=== PATIENT | female | born 1995 | race African-American/Black ===

== ENCOUNTER 2018-01-15 05:07 | Inpatient (IN) | payer MEDICAID ==
[~2018-01-15] VITALS: Ht 162.6 cm; Wt 62.6 kg
[~2018-01-15 05:07] MED LIST: ASMANEX0.135 GM; IBUPROFEN600 MG PO; PERCOCET 5-3251 TAB PO
[2018-01-15 06:36] VITALS: BP 132/76; Ht 162.6 cm; Wt 62.6 kg
[2018-01-15 06:48] LABS: BASOPHILS 0.2 % (0-2); EOSINOPHILS 0.6 % (0-7); HEMATOCRIT 28.8 % (36.0-48.0); HEMOGLOBIN 8.8 g/dL (12-16); IMMATURE GRANULOCYTES 0.5 % (0-5); MCH 22.1 pg (26.0-34.0); MCHC 30.6 g/dL (31.0-37.0); MCV 72.2 fL (80.0-100.0); MEAN PLATELET VOLUME 8.9 fL (7.4-10.4); MONOCYTES 6.6 % (2-11); NEUTROPHILS 85.1 % (40-80); PLATELET COUNT 173 10x3/uL (130-400); RBC 3.99 10x6/uL (4.00-5.40); RDW 17.7 % (11.5-14.5); WBC 13.3 10x3/uL (4.8-10.8)
[2018-01-15 07:10] VITALS: BP 142/82
[2018-01-15 12:04] VITALS: BP 138/86
[2018-01-16 07:29] LABS: RAPID PLASMA REAGIN Non Reactive (Non Reactive)
== END 2018-01-15 18:14 | disposition home or self-care (01) | DRG 775 ==
LOC: D.LD 05:07
PROVIDERS: Obstetrics & Gynecology
PROC: 10E0XZZ Delivery of Products of Conception, External Approach (ICD-10-PCS; principal; 2018-01-15)
PROC: 0KQM0ZZ Repair Perineum Muscle, Open Approach (ICD-10-PCS; 2018-01-15)
DX: O42.92 Full-term premature rupture of membranes, unspecified as to length of time between rupture and onset of labor (principal); Z3A.39 39 weeks gestation of pregnancy; Z37.0 Single live birth; O70.1 Second degree perineal laceration during delivery

== ENCOUNTER 2020-12-14 04:59 | Day surgery (SDC) | payer MEDICAID ==
[2020-12-10 13:14] LABS: BASOPHILS 0.2 % (0-2); EOSINOPHILS 0.8 % (0-7); HEMATOCRIT 30.2 % (36.0-48.0); HEMOGLOBIN 10.3 g/dL (12-16); IMMATURE GRANULOCYTES 0.1 % (0-5); LYMPHOCYTE ABS# 1.35 10x3/uL (1.18-3.74); LYMPHOCYTES 14.8 % (15-50); MCH 26.1 pg (26.0-34.0); MCHC 34.1 g/dL (31.0-37.0); MCV 76.5 fL (80.0-100.0); MEAN PLATELET VOLUME 8.4 fL (7.4-10.4); MONOCYTES 4.9 % (2-11); NEUTROPHIL ABS# 7.21 10x3/uL (1.56-6.13); NEUTROPHILS 79.2 % (40-80); PLATELET COUNT 206 10x3/uL (130-400); RBC 3.95 10x6/uL (4.00-5.40); RDW 16.2 % (11.5-14.5); WBC 9.1 10x3/uL (4.8-10.8)
[~2020-12-14] VITALS: Ht 160 cm; Wt 52.2 kg
[2020-12-14 05:48] VITALS: BP 131/93; Ht 160 cm; Wt 52.2 kg
[2020-12-14 06:28] LABS: HCG URINE POSITIVE (NEGATIVE)
--- NOTE | 2020-12-14 09:34 | NUR ---
0930 ASSISSTED UP TO BR, VOIDS QS, TAMMY PAD PROVIDED WITH DISPOSABLE UNDERWEAR. IV DC'D WITH CATH INTACT DC INSTS REVIEWED VOICED UNDERSTANDING, RX'S GIVEN, GETTING DRESSED WILL BE RELEASED IN WC.
--- NOTE | 2020-12-17 13:49 | OP ---
PATIENT NAME: JERROD SOLIMAN MEDICAL RECORD: [id number] :97 LOCATION:D.OPS ADMISSION DATE: SURGEON: LINA FREY MD DATE OF OPERATION: 12/14/2020 PREOPERATIVE DIAGNOSIS: Missed at approximately 8 weeks. POSTOPERATIVE DIAGNOSIS: Missed at approximately 8 weeks. PROCEDURE: Suction dilation and curettage. SURGEON: Dr. Lina Frey ANESTHESIA: General endotracheal. INTRAVENOUS FLUIDS: Per anesthesia record. ESTIMATED BLOOD LOSS: 100 cc. FINDINGS: 1. Grossly normal external genitalia and cervix. 2. Obvious return of products of conception during D and C. COMPLICATIONS: None apparent. DESCRIPTION OF PROCEDURE: The patient was taken to the operating room where general anesthesia was achieved without difficulty. The patient was then prepped and draped in normal sterile fashion in dorsal lithotomy position. Bladder was drained of approximately 100 cc of straw colored urine and a Graves speculum was placed into the vagina. The cervix was grasped on the anterior lip with a single tooth tenaculum. The patient was dilated to approximately 10 mm. At this point, a #9 straight suction curette was introduced into the uterus. On initial pass obvious products of conception were returned. A second pass was performed followed by sharp curettage with #2 curette. A 3rd and final suction curetting was performed. Good hemostasis noted status post. Tenaculum was removed and the speculum. The patient tolerated the procedure well and was transferred to postanesthesia recovery stable without incident. TRANSINT:[id number] Voice Confirmation ID: [id number] DOCUMENT ID: [id number] LINA FREY MD at 1349 CC: [id number] DICTATION DATE: 12/16/20 1546 SPARE PARTS CLERK: 12/16/20 1833 [facility] 12/14/20 [place] [address]
== END 2020-12-14 09:35 | disposition home or self-care (01) ==
LOC: D.OPS 04:59
PROVIDERS: ATTEND Obstetrics & Gynecology
DX: O02.1 Missed abortion (principal)

== ENCOUNTER 2020-12-18 13:53 | Emergency (ER) | payer MEDICAID ==
[~2020-12-18] VITALS: Ht 160 cm; Wt 52.3 kg
[2020-12-18 14:06] VITALS: BP 148/97; Ht 160 cm; Wt 52.3 kg
[2020-12-18 14:23] LABS: BASOPHILS 0.2 % (0-2); EOSINOPHILS 1.6 % (0-7); HEMATOCRIT 27.7 % (36.0-48.0); IMMATURE GRANULOCYTES 0.3 % (0-5); LYMPHOCYTE ABS# 1.83 10x3/uL (1.18-3.74); LYMPHOCYTES 17.8 % (15-50); MCH 25.9 pg (26.0-34.0); MCHC 32.5 g/dL (31.0-37.0); MCV 79.8 fL (80.0-100.0); MEAN PLATELET VOLUME 8.5 fL (7.4-10.4); MONOCYTES 5.7 % (2-11); NEUTROPHIL ABS# 7.67 10x3/uL (1.56-6.13); NEUTROPHILS 74.4 % (40-80); PLATELET COUNT 222 10x3/uL (130-400); RBC 3.47 10x6/uL (4.00-5.40); RDW 16.2 % (11.5-14.5); WBC 10.3 10x3/uL (4.8-10.8)
[2020-12-18 14:31] LABS: CALC OSMOLALITY 273 mosm/kg (275-300); CALCIUM 9.1 mg/dL (8.5-10.1); CHLORIDE - SERUM 104 mmol/L (98-107); CREATININE - SERUM 0.8 mg/dL (0.6-1.3); GLUCOSE 84 mg/dL (74-106); POTASSIUM - SERUM 3.5 mmol/L (3.5-5.1); SODIUM 138 mmol/L (136-145); UREA NITROGEN 9 mg/dL (7-18); eGFR NON AFRICAN AMERICAN > 90 mL/min (90-120)
[2020-12-18 14:42] LABS: BILIRUBIN NEGATIVE (NEGATIVE); KETONE NEGATIVE (NEGATIVE); NITRITE NEGATIVE (NEGATIVE); UROBILINOGEN NORMAL mg/dL (< 2)
[2020-12-18 14:48] LABS: BACTERIA FEW HPF (NONE SEEN); SQUAMOUS EPITHELIAL 0-5 HPF (0-4)
[2020-12-18 14:59] LABS: ALBUMIN 3.8 g/dL (3.4-5.0); ALKALINE PHOSPHATASE 45 U/L (30-120); ALT (SGPT) 14 U/L (10-68); AMYLASE - SERUM 51 U/L (25-115); BILIRUBIN - TOTAL 0.28 mg/dL (0.2-1.3); HCG - QUANTITATIVE (MATERNAL) 2937 mIU/mL; LIPASE 92 U/L (73-393); PROTEIN - SERUM 7.9 g/dL (6.4-8.2)
[2020-12-18 15:05] LABS: TROPONIN-I < 0.017 ng/mL (0.000-0.060)
[2020-12-18] MEDS ORDERED: DICLOFENAC SODI50 MG PO (15:40)
== END 2020-12-18 16:03 | disposition home or self-care (01) ==
LOC: D.ER 13:53
PROVIDERS: Family Medicine
DX: D64.9 Anemia, unspecified (principal); G89.18 Other acute postprocedural pain; J45.909 Unspecified asthma, uncomplicated

== ENCOUNTER 2021-02-07 14:21 | Emergency (ER) | payer OTHER ==
[~2021-02-07] VITALS: Ht 160 cm; Wt 51.8 kg
[~2021-02-07 14:21] MED LIST changes: +DICLOFENAC SODI50 MG PO
[2021-02-07 14:24] VITALS: Ht 160 cm; Wt 51.8 kg
[2021-02-07 15:21] LABS: BILIRUBIN NEGATIVE (NEGATIVE); KETONE NEGATIVE (NEGATIVE); NITRITE NEGATIVE (NEGATIVE); UROBILINOGEN NORMAL mg/dL (< 2)
[2021-02-07 15:23] LABS: BACTERIA FEW HPF (NONE SEEN); HCG URINE NEGATIVE (NEGATIVE); SQUAMOUS EPITHELIAL OCC HPF (0-4); WHITE CELLS - URINE 0-5 HPF (0-4)
[2021-02-07 15:46] VITALS: BP 122/80
== END 2021-02-07 15:46 | disposition home or self-care (01) ==
LOC: D.ER 14:21
PROVIDERS: Family Medicine
DX: R10.9 Unspecified abdominal pain (principal); J45.909 Unspecified asthma, uncomplicated; R11.0 Nausea